=== PATIENT | female | born 2000 ===

== ENCOUNTER 2018-05-03 15:30 | Emergency (ER) | payer MEDICAID ==
[~2018-05-03] VITALS: Ht 157.5 cm; Wt 57.6 kg
--- NOTE | 2018-05-03 16:15 | NUR ---
PATIENT WAS MSE BY DR ALLEN IN ROOM 02A.
[2018-05-03 16:28] VITALS: BP 102/58
--- NOTE | 2018-05-03 16:31 | NUR ---
Patient discharged to home in stable conditon. Written and verbal after care instructions given. Patient and mother verbalizes understanding of instructions.
== END 2018-05-03 16:33 | disposition home or self-care (01) ==
LOC: ER 15:32
DX: H10.9 Unspecified conjunctivitis (principal)
CPT/HCPCS: A4663